=== PATIENT | male | born 1945 | race Caucasian/White ===

== ENCOUNTER 2017-12-01 20:38 | Emergency (ER) | payer MEDICARE ==
[2017-12-01] MEDS ORDERED: methylPREDNIS SUCC 125 MG/2ML IVP ONE (20:40)
[2017-12-01] MEDS ORDERED: ALBUTEROL/IPRATROPIUM 3 ML NEB NEB ONE ×2 (20:40→23:20)
--- NOTE | 2017-12-01 20:51 | ER Report ---
History and Physical Time Seen By MD: 20:45 Hx. of Stated Complaint: patient reports shortness of breath that has been ongoing throughout the day, has hx of cardiac events HPI/ROS CHIEF COMPLAINT: Shortness of breath, chest pain HISTORY OF PRESENT ILLNESS: 72-year-old male with a known history of cardiac disease, status post 3 stents. Also COPD. Patient has been sick for a week with a productive cough. Tonight he presents to urgent care with increased work of breathing. He was prescribed Zithromax and a prednisone burst on Monday by his primary care Dr Puentes without an evaluation. Here visiting grandchildren in [place] from [place], [place]. Patient presented to urgent care with severe respiratory distress at pursed lip breathing. They performed a chest x-ray which was unremarkable, per report. An EKG which showed sinus tachycardia with old inferior Q waves. Patient was given nitroglycerin 2 by EMS and aspirin in route. He notes little improvement of his chest discomfort. He notes productive cough of colored sputum. On arrival he has a fever 102.3 temporally. Patient is a one fourth pack day smoker. REVIEW OF SYSTEMS: Respiratory: As above Cardiovascular: As above Gastrointestinal: No vomiting, no abdominal pain. Musculoskeletal: No back pain. Allergies: Coded Allergies: Penicillins (Verified Allergy, Intermediate, 12/01/17) Home Meds Active Scripts Albuterol Sulfate (VENTOLIN HFA) 18 Gm Inh, 2 PUFF INH Q4-6H Y for bronchospasm , #2 INH Prov:CHELITA CULLEN DO 12/01/17 Levofloxacin 500 Mg Tab (LEVAQUIN 500 MG TAB) 500 Mg Tablet, 500 MG PO DAILY for INFECTION, #6 TAB Prov:CHELITA CULLEN DO 12/01/17 Reported Medications Cyclobenzaprine Hcl (CYCLOBENZAPRINE HCL) 5 Mg Tablet, 5 MG PO TID, #9 TAB 12/01/17 Hydromorphone Hcl (DILAUDID) 2 Mg Tablet, 2 MG PO 12/01/17 Guaifenesin/Codeine (GUAIFENESIN-CODEINE SYRUP) 5 Ml Syrp 12/01/17 Cephalexin 500 Mg Tab (KEFLEX 500 MG TAB) 500 Mg Tablet, 500 MG PO Q6H, #28 TAB 12/01/17 Etodolac (ETODOLAC) 400 Mg Tablet, 400 MG PO BID 12/01/17 Amlodipine Besylate (AMLODIPINE BESYLATE) 5 Mg Tablet, 1 TAB PO QDAY, TAB 12/01/17 Atorvastatin Calcium (LIPITOR) 10 Mg Tablet, 1 TAB PO QHS, TAB 12/01/17 Prednisone 10 Mg Tab (PREDNISONE 10 MG TAB) 10 Mg Tab.ds.pk, 10 MG PO, TAB 12/01/17 Gabapentin (GABAPENTIN) 300 Mg Capsule, 300 MG PO TID, CAPSULE 12/01/17 Ondansetron (ZOFRAN ODT) 4 Mg Tab.rapdis, 8 MG PO Q12H, TAB.OZZY 12/01/17 Bupropion Hcl (WELLBUTRIN SR) 150 Mg Tablet.er, 150 MG PO QDAY, TAB 12/01/17 Omeprazole (OMEPRAZOLE) 20 Mg Tablet.dr, 20 MG PO QDAY, TAB 12/01/17 Promethazine Hcl (PROMETHAZINE HCL) 25 Mg Tablet, 25 MG PO Q8H, TAB 12/01/17 Clindamycin Hcl (CLEOCIN HCL) 150 Mg Capsule, 150 MG PO Q6H, #40 CAPSULE 12/01/17 Zolpidem Tartrate (AMBIEN) 10 Mg Tablet, 1 TAB PO QHS, TAB 12/01/17 Terazosin Hcl (TERAZOSIN HCL) 2 Mg Capsule, 2 MG PO QHS, CAPSULE 12/01/17 Metoprolol Tartrate (METOPROLOL TARTRATE) 25 Mg Tablet, 2 TAB PO DAILY, TAB 12/01/17 Prednisone (PREDNISONE) 20 Mg Tablet, 20 MG PO BID, TAB 12/01/17 Oxycodone Hcl/Acetaminophen (PERCOCET 5-325 MG TABLET) 1 Each Tablet, 1 EACH PO , TAB 12/01/17 Tamsulosin Hcl (TAMSULOSIN HCL) 0.4 Mg Cap.er.24h, 0.4 MG PO, CAP 12/01/17 Discontinued Reported Medications Zolpidem Tartrate (AMBIEN) 5 Mg Tablet, 1 TAB PO QHS, TAB 12/01/17 Past Medical/Surgical History Past medical history coronary artery disease, status post stents 3, last cardiology evaluation was June, BPH, insomnia, GERD, hypertension Past surgical history coronary stents, knee replacement Reviewed Nurses Notes: Yes Old Medical Records Reviewed: Yes Constitutional Vital Sign - Last 24 Hours 12/01/17 12/01/17 12/01/17 12/01/17 20:40 20:46 20:53 21:00 Temp 102.4 Pulse 134 128 Resp 25 19 B/P (MAP) 145/86 150/82 (104) Pulse Ox 94 89 O2 Flow Rate 4.0 12/01/17 12/01/17 12/01/17 12/01/17 21:08 21:23 21:30 21:38 Pulse 124 123 121 Resp 11 28 22 B/P (MAP) 120/104 (109) Pulse Ox 93 98 89 12/01/17 12/01/17 12/01/17 12/01/17 22:00 22:08 22:13 22:28 Pulse 117 120 116 Resp 28 15 23 B/P (MAP) 153/80 (104) Pulse Ox 89 91 88 12/01/17 12/01/17 12/01/17 12/01/17 22:30 22:43 22:48 23:00 Pulse 116 117 Resp 30 25 B/P (MAP) 149/80 (103) 150/66 (94) Pulse Ox 89 90 12/01/17 12/01/17 12/01/17 12/01/17 23:03 23:18 23:23 23:28 Pulse 112 110 108 112 Resp 28 26 17 22 Pulse Ox 85 88 90 95 12/01/17 12/01/17 12/01/17 12/01/17 23:30 23:35 23:41 23:47 Pulse 108 115 116 Resp 24 20 20 B/P (MAP) 139/82 (101) Pulse Ox 88 Physical Exam Vital signs stable, fever 102.3, oral temperature 100.4 after a nebulizer treatment, patient requiring 4 L to get saturations of 94% General Appearance: The patient is alert, has no immediate need for airway protection and no current signs of toxicity. Mild to moderate respiratory distress, skin flushed HEENT: Pupils equal and round no injection. Oropharynx with moderate erythema, no exudate or petechiae Respiratory: Chest is non tender, lungs are decreased throughout with some expiratory wheezing, no Rales Cardiac: regular rate and rhythm, tachycardia Gastrointestinal: Abdomen is soft and non tender, no masses, bowel sounds normal. Musculoskeletal: Neck: Neck is supple and non tender. No JVD, no lymphadenopathy Extremities have full range of motion and are non tender. No edema, no calf tenderness Skin: No rashes or lesions. DIFFERENTIAL DIAGNOSIS: After history and physical exam differential diagnosis was considered for shortness of breath including but not limited to pulmonary infectious process, COPD, asthma, pulmonary embolus and congestive heart failure. Additionally,chest pain including but not limited to myocardial ischemia, pericarditis pulmonary embolus, chest wall pain, pleural inflammation and pulmonary infectious causes. Medical Decision Making Data Points Result Diagram: 12/01/17202612/01/172026 Laboratory Hematology Test 12/01/17 20:27 12/01/17 21:30 12/01/17 21:35 Red Blood Count 5.14 M/uL (4.00-5.60) Mean Corpuscular Volume 93.2 fL (80.0-96.0) Mean Corpuscular Hemoglobin 32.4 pg (26.0-33.0) Mean Corpuscular Hemoglobin Concent 34.7 g/dL (32.0-36.0) Red Cell Distribution Width 14.6 % (11.5-14.5) Mean Platelet Volume 7.4 fL (7.2-11.1) Neutrophils (%) (Auto) 83.0 % (39.4-72.5) Lymphocytes (%) (Auto) 8.5 % (17.6-49.6) Monocytes (%) (Auto) 7.3 % (4.1-12.4) Eosinophils (%) (Auto) 0.6 % (0.4-6.7) Basophils (%) (Auto) 0.6 % (0.3-1.4) Nucleated RBC Relative Count (auto) 0.2 /100WBC Neutrophils # (Auto) 9.0 K/uL (2.0-7.4) Lymphocytes # (Auto) 0.9 K/uL (1.3-3.6) Monocytes # (Auto) 0.8 K/uL (0.3-1.0) Eosinophils # (Auto) 0.1 K/uL (0.0-0.5) Basophils # (Auto) 0.1 K/uL (0.0-0.1) Nucleated RBC Absolute Count (auto) 0.02 K/uL D-Dimer Quantitative (PE/DVT) 0.84 ug/ml (0-0.50) Sodium Level 139 mmol/L (137-145) Potassium Level 3.9 mmol/L (3.5-5.0) Chloride Level 97 mmol/L (98-107) Carbon Dioxide Level 28 mmol/L (22-30) Blood Urea Nitrogen 17 mg/dl (9-21) Creatinine 1.50 mg/dl (0.66-1.25) Glomerular Filtration Rate Calc 46.3 Random Glucose 117 mg/dl (75-110) Lactate 2.8 mmol/L (0.7-2.1) Calcium Level 9.6 mg/dl (8.4-10.2) Total Bilirubin 0.5 mg/dl (0.2-1.3) Aspartate Amino Transf (AST/SGOT) 26 U/L (0-35) Alanine Aminotransferase (ALT/SGPT) 40 U/L (0-56) Alkaline Phosphatase 59 U/L (0-126) Troponin I < 0.012 ng/ml B-Type Natriuretic Peptide 28 pg/ml (0-100) Total Protein 7.4 gm/dl (6.3-8.2) Albumin 4.2 g/dl (3.5-5.0) Influenza Virus Type A (PCR) Negative (NEGATIVE) Influenza Virus Type B (PCR) Negative (NEGATIVE) Urine Color Yellow Urine Clarity Clear Urine pH 6.0 pH (4.8-9.5) Urine Specific [place] 1.025 Urine Protein Negative mg/dL (NEGATIVE) Urine Glucose (UA) Negative mg/dL (NEGATIVE) Urine Ketones Trace mg/dL (NEGATIVE) Urine Blood Negative (NEGATIVE) Urine Nitrite Negative (NEGATIVE) Urine Bilirubin Negative (NEGATIVE) Urine Urobilinogen 4.0 mg/dL (0.2-1.9) Urine Leukocyte Esterase Negative (NEGATIVE) Urine RBC 6 /HPF (0-2/HPF) Urine WBC <1 /HPF (0-5/HPF) Urine Squamous Epithelial Cells Moderate /LPF (</=FEW) Urine Bacteria Negative /HPF (NONE-FEW) Urine Mucus Few /HPF (NONE-FEW) Chemistry Test 12/01/17 20:27 12/01/17 21:30 12/01/17 21:35 White Blood Count 10.8 k/uL (4.5-11.0) Red Blood Count 5.14 M/uL (4.00-5.60) Hemoglobin 16.6 g/dL (14.0-18.0) Hematocrit 47.9 % (42.0-52.0) Mean Corpuscular Volume 93.2 fL (80.0-96.0) Mean Corpuscular Hemoglobin 32.4 pg (26.0-33.0) Mean Corpuscular Hemoglobin Concent 34.7 g/dL (32.0-36.0) Red Cell Distribution Width 14.6 % (11.5-14.5) Platelet Count 197 K/uL (150-450) Mean Platelet Volume 7.4 fL (7.2-11.1) Neutrophils (%) (Auto) 83.0 % (39.4-72.5) Lymphocytes (%) (Auto) 8.5 % (17.6-49.6) Monocytes (%) (Auto) 7.3 % (4.1-12.4) Eosinophils (%) (Auto) 0.6 % (0.4-6.7) Basophils (%) (Auto) 0.6 % (0.3-1.4) Nucleated RBC Relative Count (auto) 0.2 /100WBC Neutrophils # (Auto) 9.0 K/uL (2.0-7.4) Lymphocytes # (Auto) 0.9 K/uL (1.3-3.6) Monocytes # (Auto) 0.8 K/uL (0.3-1.0) Eosinophils # (Auto) 0.1 K/uL (0.0-0.5) Basophils # (Auto) 0.1 K/uL (0.0-0.1) Nucleated RBC Absolute Count (auto) 0.02 K/uL D-Dimer Quantitative (PE/DVT) 0.84 ug/ml (0-0.50) Glomerular Filtration Rate Calc 46.3 Lactate 2.8 mmol/L (0.7-2.1) Calcium Level 9.6 mg/dl (8.4-10.2) Total Bilirubin 0.5 mg/dl (0.2-1.3) Aspartate Amino Transf (AST/SGOT) 26 U/L (0-35) Alanine Aminotransferase (ALT/SGPT) 40 U/L (0-56) Alkaline Phosphatase 59 U/L (0-126) Troponin I < 0.012 ng/ml B-Type Natriuretic Peptide 28 pg/ml (0-100) Total Protein 7.4 gm/dl (6.3-8.2) Albumin 4.2 g/dl (3.5-5.0) Influenza Virus Type A (PCR) Negative (NEGATIVE) Influenza Virus Type B (PCR) Negative (NEGATIVE) Urine Color Yellow Urine Clarity Clear Urine pH 6.0 pH (4.8-9.5) Urine Specific [place] 1.025 Urine Protein Negative mg/dL (NEGATIVE) Urine Glucose (UA) Negative mg/dL (NEGATIVE) Urine Ketones Trace mg/dL (NEGATIVE) Urine Blood Negative (NEGATIVE) Urine Nitrite Negative (NEGATIVE) Urine Bilirubin Negative (NEGATIVE) Urine Urobilinogen 4.0 mg/dL (0.2-1.9) Urine Leukocyte Esterase Negative (NEGATIVE) Urine RBC 6 /HPF (0-2/HPF) Urine WBC <1 /HPF (0-5/HPF) Urine Squamous Epithelial Cells Moderate /LPF (</=FEW) Urine Bacteria Negative /HPF (NONE-FEW) Urine Mucus Few /HPF (NONE-FEW) Coagulation Test 12/01/17 20:27 D-Dimer Quantitative (PE/DVT) 0.84 ug/ml Urinalysis Test 12/01/17 21:35 Urine Color Yellow Urine Clarity Clear Urine pH 6.0 pH (4.8-9.5) Urine Specific [place] 1.025 Urine Protein Negative mg/dL (NEGATIVE) Urine Glucose (UA) Negative mg/dL (NEGATIVE) Urine Ketones Trace mg/dL (NEGATIVE) Urine Blood Negative (NEGATIVE) Urine Nitrite Negative (NEGATIVE) Urine Bilirubin Negative (NEGATIVE) Urine Urobilinogen 4.0 mg/dL (0.2-1.9) Urine Leukocyte Esterase Negative (NEGATIVE) Urine RBC 6 /HPF (0-2/HPF) Urine WBC <1 /HPF (0-5/HPF) Urine Squamous Epithelial Cells Moderate /LPF (</=FEW) Urine Bacteria Negative /HPF (NONE-FEW) Urine Mucus Few /HPF (NONE-FEW) Microbiology Microbiology Date/Time Source Procedure Growth Status 12/01/17 20:58 Blood Peripheral Draw Blood Culture - Final Resulted 12/01/17 20:58 Blood Peripheral Draw Blood Culture - Preliminary Resulted 12/01/17 20:48 Blood Peripheral Draw Blood Culture - Preliminary NO GROWTH AFTER 1 DAY, REINCUBATED Resulted EKG/Imaging EKG Interpretation 12 lead EK Rhythm: Sinus tachycardia, rate 129 [place]: normal QRS: normal ST segments: Nonspecific diffuse ST and T-wave changes, old inferior Q waves, no old EKGs for comparison Imaging X-ray: Two-view chest x-ray from urgent care. Loaded in the PACS system was obtained. I viewed the images myself on the PACS system. My interpretation of the images is: There is suggestion of a left lower lobe infiltrate potentially right lower lobe infiltrate, but likely a breast shadow, no costal vertebral angle blunting, normal mediastinum. The radiologist interpretation had no clinically significant variation from this interpretation. Results: CT scan of the CT pulmonary angiogram was obtained. The results of the study are CTA of the chest with IV contrast HISTORY: Hypoxia. Fever. TECHNIQUE: Pulmonary embolus protocol - Thin-slice axial imaging of the chest was performed during maximal pulmonary arterial opacification with intravenous nonionic iodinated contrast. 3D coronal slab MIPs and 2D reconstructions in the coronal and sagittal planes were performed to aid in pulmonary embolus detection. [employer] Worker images have been stored on PACS. One of the following dose optimization techniques was utilized in the performance of this exam: Automated exposure control; adjustment of the mA and/ or kV according to the patient's size; or use of an iterative reconstruction technique. Specific details can be referenced in the facility's radiology CT exam operational policy. CONTRAST: 75 mL of IV Isovue-370 COMPARISON: None. FINDINGS: CTA CHEST: Please note that this exam is optimized for assessment of the pulmonary arteries and is not intended as a diagnostic study of the thoracic aorta, coronary arteries or venous structures. Angiographic Findings: Pulmonary arteries: There are no filling defects in the main, right, left, lobar , segmental or visualized sub-segmental branches of the pulmonary arterial system. No intraluminal webs or bronchial collaterals. Other vasculature: Mild aortic calcifications. No aneurysm or stenosis. Additional non-angiographic findings: Lungs / Pleura: Mild tree-in-bud opacities in the right upper lobe, right middle lobe, and right lower lobe suggestive of aspiration or infectious bronchiolitis. No pleural effusion or pneumothorax. Mediastinum / Imelda: Negative. Heart / Pericardium: Multivessel coronary artery calcification. No pericardial effusion. Musculoskeletal / Body wall: Multilevel degenerative disc disease in the thoracic spine with normal vertebral body height. No aggressive osseous lesions. Lymph node assessment: Calcified right hilar lymph nodes consistent with old granulomatous disease. Upper abdomen: Negative. Lower neck: Negative. IMPRESSION: 1. No evidence of acute or chronic pulmonary embolism. 2. Mild tree-in-bud opacities in the right upper lobe, right middle lobe, and right lower lobe suspicious for aspiration or infectious bronchiolitis. The study was read by the radiologist. I viewed the images myself on the PACS system. ED Course/Re-evaluation Clinical Indication for ER IV: IV Access ED Course Patient was admitted to an examination room. H&P was done. The differential diagnosis was considered. On clinical examination. Patient's obvious short of breath and having increased need of oxygen. He wears no home O2. He is a one fourth pack day smoker. He has a history of COPD. His doctor called in Zithromax and a prednisone taper last Monday. He did not get better. He got much worse over the last 24 hours. He presented urgent care in moderate respiratory distress. They performed a chest x-ray and EKG which were unremarkable. They transferred him to the emergency department for further evaluation. Patient presented in respiratory distress. He is brought over by EMS. He received a glycerin in route which didn't seem to improve his symptoms. Patient has a fever of 102.3 on arrival. Patient required minimal oxygen need keep his saturations up. He is treated with DuoNeb 2, sodium Medrol 125 mg IV. The chest x-ray from urgent care's reviewed. There is some haziness in the left lower lobe suspicious for pneumonia. His white blood cell count is mildly elevated with a left shift. Patient's troponin is negative. His BMP is negative. His d-dimer is elevated. CT angiogram is performed to r/ o pulmonary embolism. It is unremarkable for PE. There is some suggestions of infectious bronchiolitis. Patient be treated with Rocephin and Levaquin. He is prescribed albuterol inhalers. Decision to Disposition Date: Dec 01, 2017 Decision to Disposition Time: 22:55 Depart Departure Latest Vital Signs Vital Signs Date Time Temp Pulse Resp B/P (MAP) Pulse Ox O2 Delivery O2 Flow Rate FiO2 12/01/17 23:47 116 20 12/01/17 23:35 88 12/01/17 23:30 139/82 (101) 12/01/17 20:46 4.0 12/01/17 20:40 102.4 Impression: Primary Impression: ACUTE BRONCHITIS, UNSPECIFIED Additional Impressions: COPD exacerbation History of coronary artery disease Condition: Improved Disposition: HOME OR SELF-CARE New Scripts Albuterol Sulfate (VENTOLIN HFA) 18 Gm Inh 2 PUFF INH Q4-6H Y for bronchospasm, #2 INH Prov: CHELITA CULLEN DO 12/01/17 Levofloxacin 500 Mg Tab (LEVAQUIN 500 MG TAB) 500 Mg Tablet 500 MG PO DAILY for INFECTION, #6 TAB Prov: CHELITA CULLEN DO 12/01/17 Patient Instructions: Acute Bronchitis (ED), COPD (Chronic Obstructive Pulmonary Disease) (ED) Additional Instructions: Follow-up with your primary care doctor upon returning home Return to the ER for any worsening Problem Qualifiers CHELITA CULLEN DO Dec 01, 2017 20:51
[2017-12-01] MEDS ORDERED: OXYC-865 PO (20:53)
[2017-12-01] MEDS ORDERED: PRED20TA6 PO (20:53)
[2017-12-01] MEDS ORDERED: TAMS0.4C70 PO (20:53)
[2017-12-01] MEDS ORDERED: ZOLP-1 PO (20:53)
[2017-12-01 20:54] LABS: PLATELET COUNT, AUTOMATED 197 K/uL (150-450)
[2017-12-01] MEDS ORDERED: methylPREDNIS SUCC 125 MG/2ML ONE (21:18)
[2017-12-01] MEDS ORDERED: METO25TA93 PO (21:34)
[2017-12-01] MEDS ORDERED: ROBC (21:42)
[2017-12-01] MEDS ORDERED: OMEP-137 PO (21:42)
[2017-12-01] MEDS ORDERED: HYDR2TAB74 PO (21:42)
[2017-12-01] MEDS ORDERED: PROM-110 PO (21:42)
[2017-12-01] MEDS ORDERED: GABA-549 PO (21:42)
[2017-12-01] MEDS ORDERED: CLIN-60 PO (21:42)
[2017-12-01] MEDS ORDERED: ETOD-1 PO (21:42)
[2017-12-01] MEDS ORDERED: PRED-420 PO (21:42)
[2017-12-01] MEDS ORDERED: ONDA4TAB PO (21:42)
[2017-12-01] MEDS ORDERED: BUPR-126 PO (21:42)
[2017-12-01] MEDS ORDERED: ZOLP-350 PO (21:42)
[2017-12-01] MEDS ORDERED: AMLO-96 PO (21:42)
[2017-12-01] MEDS ORDERED: TERA2CAP54 PO (21:42)
[2017-12-01] MEDS ORDERED: ATOR10TA24 PO (21:42)
[2017-12-01] MEDS ORDERED: CEPH500T7 PO (21:42)
[2017-12-01] MEDS ORDERED: CYCL-277 PO (21:42)
[2017-12-01] MEDS ORDERED: NS 0.9% 150 ML BAG 150 ML ONE (21:54)
[2017-12-01] MEDS ORDERED: IOPAMIDOL 76% 75 ML INFUS BTL 75 ML ONE (21:54)
--- NOTE | 2017-12-01 22:45 | RADIOLOGY IMAGING REPORT ---
FACILITY: [facility] PATIENT NAME: Luis Antonio Kilgore : 1945 MR: [id number] V: [id number] EXAM DATE: ORDERING PHYSICIAN: CHELITA CULLEN TECHNOLOGIST: Location: [facility] Patient: Luis Antonio Kilgore : 1945 Visit/Account:[id number] Date of Sevice: 12/01/2017 EXAMINATION: CTA of the chest with IV contrast HISTORY: Hypoxia. Fever. TECHNIQUE: Pulmonary embolus protocol - Thin-slice axial imaging of the chest was performed during maximal pulmonary arterial opacification with intravenous nonionic iodinated contrast. 3D coronal sla b MIPs and 2D reconstructions in the coronal and sagittal planes were performed to aid in pulmonary e mbolus detection. On Call images have been stored on PACS. One of the following dose optimization techniques was utilized in the performance of this exam: Autom ated exposure control; adjustment of the mA and/or kV according to the patient's size; or use of an i terative reconstruction technique. Specific details can be referenced in the facility's radiology C T exam operational policy. CONTRAST: 75 mL of IV Isovue-370 COMPARISON: None. FINDINGS: CTA CHEST: Please note that this exam is optimized for assessment of the pulmonary arteries and is not intended as a diagnostic study of the thoracic aorta, coronary arteries or venous structures. Angiographic Findings: Pulmonary arteries: There are no filling defects in the main, right, left, lobar, segmental or visual ized sub-segmental branches of the pulmonary arterial system. No intraluminal webs or bronchial nancy aterals. Other vasculature: Mild aortic calcifications. No aneurysm or stenosis. Additional non-angiographic findings: Lungs / Pleura: Mild tree-in-bud opacities in the right upper lobe, right middle lobe, and right lo wer lobe suggestive of aspiration or infectious bronchiolitis. No pleural effusion or pneumothorax. Mediastinum / Imelda: Negative. Heart / Pericardium: Multivessel coronary artery calcification. No pericardial effusion. Musculoskeletal / Body wall: Multilevel degenerative disc disease in the thoracic spine with normal vertebral body height. No aggressive osseous lesions. Lymph node assessment: Calcified right hilar lymph nodes consistent with old granulomatous disease. Upper abdomen: Negative. Lower neck: Negative. IMPRESSION: 1. No evidence of acute or chronic pulmonary embolism. 2. Mild tree-in-bud opacities in the right upper lobe, right middle lobe, and right lower lobe suspic ious for aspiration or infectious bronchiolitis. Report Dictated By: Antione Eubanks MD at 12/01/2017 10:34 PM Report E-Signed By: Antione Eubanks MD at 12/01/2017 10:41 PM WSN:[id number]
[2017-12-01] MEDS ORDERED: cefTRIAXone(*) 1 GM VIAL 1 GM in NS(*) 0.9% 100 ML ADDVANT BAG 100 ML IVPB ONE (22:55)
[2017-12-01] MEDS ORDERED: LEVOFLOXACIN 500 MG TAB PO ONE (22:55)
[2017-12-01] MEDS ORDERED: LEVO-85 PO (22:57)
[2017-12-01] MEDS ORDERED: ALB18R INH (23:13)
[2017-12-01] MEDS ORDERED: ALBUTEROL SULFATE 90 MCG/ACT 8.5 GM HNH INH PRN (23:15)
--- NOTE | 2017-12-01 23:27 | EKG ---
FACILITY: [facility] PATIENT NAME: Luis Antonio Kilgore : [id number] MR: [id number] V: [id number] EXAM DATE: ORDERING PHYSICIAN: CHELITA CULLEN TECHNOLOGIST: WILLIE Test Reason : CHEST PAIN Blood Pressure : / mmHG Vent. Rate : 129 BPM Atrial Rate : 129 BPM P-R Int : 134 ms QRS Dur : 082 ms QT Int : 272 ms P-R-T Axes : 074 023 080 degrees QTc Int : 398 ms Sinus tachycardia Nonspecific ST abnormality Abnormal ECG No previous ECGs available Confirmed by ISMAEL ARITA ([id number] on 12/02/2017 5:49:40 AM Referred By: Confirmed By:ISMAEL ARITA
[2017-12-01 23:30] VITALS: BP 139/82
== END 2017-12-01 23:50 | disposition home or self-care (01) ==
LOC: ER 20:46
DX: J20.9 Acute bronchitis, unspecified (principal); J44.0 Chronic obstructive pulmonary disease with (acute) lower respiratory infection; J44.1 Chronic obstructive pulmonary disease with (acute) exacerbation; I25.10 Atherosclerotic heart disease of native coronary artery without angina pectoris; F17.210 Nicotine dependence, cigarettes, uncomplicated; N40.0 Benign prostatic hyperplasia without lower urinary tract symptoms; K21.9 Gastro-esophageal reflux disease without esophagitis; I10 Essential (primary) hypertension; G47.00 Insomnia, unspecified; Z95.5 Presence of coronary angioplasty implant and graft
CPT/HCPCS: 71275; 81001; 83605; 83880; 84484; 85025; 85379; 87040; 87077; 87186; 87502; 93005; 94640; 96365; 96375; 99284; A9270; J0696; J2930; J7050; J7620; Q9967; 82040; 82247; 82310; 82374; 82435; 82565; 82947; 84075; 84132; 84155; 84295; 84450; 84460; 84520

== ENCOUNTER → 2017-12-01 | Outpatient (CLI) | payer MEDICARE ==
[~2017-12-01] MED LIST: ALB18R INH; AMLO-96 PO; ATOR10TA24 PO; BUPR-126 PO; CEPH500T7 PO; CLIN-60 PO; CYCL-277 PO; ETOD-1 PO; GABA-549 PO; HYDR2TAB74 PO; LEVO-85 PO; METO25TA93 PO; OMEP-137 PO; ONDA4TAB PO; OXYC-865 PO; PRED-420 PO; PRED20TA6 PO; PROM-110 PO; ROBC; TAMS0.4C70 PO; TERA2CAP54 PO; ZOLP-1 PO; ZOLP-350 PO
== END ==
LOC: AMB 20:21
PROVIDERS: ATTEND Nurse Practitioner
DX: R07.9 Chest pain, unspecified (principal); R09.02 Hypoxemia; R00.0 Tachycardia, unspecified
CPT/HCPCS: A0425; A0427